=== PATIENT | female | born 1995 | race Hispanic/Latino ===

== ENCOUNTER 2020-10-08 04:25 | Inpatient (IN) | payer OTHER, SELFPAY ==
[2020-10-08] VITALS (77 sets, daily range): BP systolic 89–132; BP diastolic 63–108; PULSE 71–103; RESP 14–18; TEMP 36.3–36.9; O2SAT 93–100; BMI 33.5
--- NOTE | 2020-10-08 04:51 | WPDANESEPP ---
Anes - Eval Pre Procedure Date/Time: 10/08/20 04:51 Pre Op Diagnosis: leaking Patient Data Age: 25 Gender: F Height: Weight: Last Vital Signs Pulse 93 10/08/20 04:46 BP 132/108 H 10/08/20 04:46 Allergies Allergy/AdvReac Type Severity Reaction Status Date / Time No Known Allergies Allergy Unknown Verified 03/19/19 13:17 Home Medications Medication Instructions Recorded Confirmed Type Otc Wt. Loss Supplement 04/28/19 History etonogestrel [Nexplanon] SUBDERMAL 04/28/19 History Exam Day of Procedure 10/08/20 04:51
--- NOTE | 2020-10-08 04:53 | WPDANESEPP ---
Anes - Eval Pre Procedure Procedure: Repeat c section with BTL Date/Time: 10/08/20 04:53 Surgeon: Ezequiel Preop Diagnosis: Previous c section desires sterility Pre Op Diagnosis: leaking Patient Data Age: 25 Gender: F Height: Weight: Last Vital Signs Pulse 93 10/08/20 04:46 BP 132/108 H 10/08/20 04:46 Allergies Allergy/AdvReac Type Severity Reaction Status Date / Time No Known Allergies Allergy Unknown Verified 03/19/19 13:17 Home Medications Medication Instructions Recorded Confirmed Type Otc Wt. Loss Supplement 04/28/19 History etonogestrel [Nexplanon] SUBDERMAL 04/28/19 History Patient hx anesthesia problems: none Family hx anesthesia problems: none PMFSH Past Medical History Medical History Overweight (BMI 25.0-29.9) and not yet delivered Surgical History Surgical History Previous section Exam Day of Procedure 10/08/20 04:53 Patient weight: overweight Airway: Mallampati scale class II Neurological: alert and oriented
[2020-10-08 05:36] LABS: Basophils Percent Auto 0.4 % (0.2-1.2); Eosinophils Absolute Auto 0.1 K/mm3 (0-0.3); Eosinophils Percent Auto 1.3 % (0-4.4); Hematocrit 34.3 % (37.0-47.0); Hemoglobin 11.2 g/dL (12.0-15.0); Immature Granulocyte Absolute 0.11 K/mm3 (0.00-0.031); Immature Granulocyte Percent A 1.5 % (0-0.5); Lymphocytes Absolute Auto 1.65 K/mm3 (0.9-3.2); Lymphocytes Percent Auto 22.1 % (18.3-44.2); Mean Corpuscular HGB Conc 32.7 g/dl (32-36); Mean Corpuscular Hemoglobin 30.8 pg (26-34); Mean Corpuscular Volume 94.2 fl (80-100); Mean Platelet Volume 10.7 fl (7.4-10.4); Monocytes Absolute Auto 0.6 K/mm3 (0.1-0.6); Monocytes Percent Auto 7.5 % (2.6-8.5); Neutrophils Percent Auto 67.2 % (45.5-73.1); Platelet Count Result 185 k/mm3 (150-375); Red Blood Count 3.64 M/mm3 (4.2-5.4); White Blood Count 7.5 K/mm3 (4.5-10.0)
[2020-10-08] MEDS: LACTATED RINGERS 1,000 ML 125 ML IV CONT (05:50)
--- NOTE | 2020-10-08 06:41 | WPDANESEFPP ---
Anes - Eval Final PreProcedure Day of Procedure 10/08/20 06:41 Patient weight: obese Heart: regular rate and rhythm Lungs: clear to auscultation Airway: Mallampati scale class II Neurological: alert and oriented Last oral intake: >/= 8 hours ASA classification: II Emergent: no Anesthetic plan: proceed Anesthesia type and monitoring: regional spinal and standard monitoring Informed Consent: The patient's anesthetic plan and its attendant risks and benefits were discussed with the patient/family/POA. Questions were solicited and answers provided to the satisfaction of the patient/family/POA.
[2020-10-08] MEDS: LACTATED RINGERS 1,000 ML 999 ML IV CONT (06:54)
--- NOTE | 2020-10-08 07:02 | PM.IMHP ---
H&P: HPI History of Present Illness Date/Time: 10/08/20 07:02 25 yo who presents with SROM in the setting of prior . Pt denies any regular contractions. Her has been complicated by history fo Preeclampsia in a previous requiring at 30w. Her BP have been wnl this . Pt desires permanent sterilization via tubal ligation at the time of . Chief Complaint: Spontaneous rupture of membranes Review of Systems Cardiovascular: Cardiovascular: Denies chest pain, Denies leg edema, Denies palpitations, Denies dyspnea and Denies dyspnea on exertion Respiratory: Respiratory: Denies cough, Denies dyspnea and Denies dyspnea on exertion Gastrointestinal: Gastrointestinal: Denies abdominal pain, Denies constipation, Denies diarrhea, Denies nausea and Denies vomiting Genitourinary: Genitourinary: Denies hematuria, Denies urinary frequency, Denies dysuria, Denies pelvic pain, Denies urinary incontinence and Denies vaginal discharge Neurologic: Reports system reviewed and no additional complaints, except as documented Psychiatric: Psychiatric: Reports no additional psychiatric complaints Endocrine: Endocrine: Denies palpitations PMFSH Past Medical History Medical History (Updated 10/08/20 @ 07:04 by Paras Ren MD) Overweight (BMI 25.0-29.9) and not yet delivered Surgical History Surgical History Previous section Social History Social History Smoking status: Never smoker Spiritual care concerns: No Meds Home Medications and Allergies Home Medications Medication Instructions Recorded Confirmed Type PNV cmb#95-ferrous fumarate-FA 1 tablet PO DAILY 10/08/20 10/08/20 History [] aspirin 81 mg PO DAILY 10/08/20 10/08/20 History ergocalciferol (vitamin D2) 1,250 mcg PO WEEKLY 10/08/20 10/08/20 History [Vitamin D2] Allergies Allergy/AdvReac Type Severity Reaction Status Date / Time No Known Allergies Allergy Unknown Verified 03/19/19 13:17 Vital Signs Vital Signs - 24 hr 10/08/20 04:37 10/08/20 04:41 10/08/20 04:46 Temperature 36.4 C L Pulse Rate 91 93 Blood Pressure 119/84 132/108 H 10/08/20 05:52 10/08/20 06:01 10/08/20 06:16 Temperature Pulse Rate 86 88 86 Blood Pressure 131/84 124/88 117/69 10/08/20 06:31 10/08/20 06:46 10/08/20 06:52 Temperature Pulse Rate 85 91 86 Blood Pressure 108/63 131/93 H 122/84 Exam Const: General: no acute distress Eyes: EOM: EOMs intact bilaterally Neck: Neck: supple Thyroid: thyroid normal Chest: Breast/axilla inspection: normal inspection of the breasts Breast/axilla palpation: normal palpation of the breasts, normal palpation of the axillae and no axillary lymphadenopathy Resp: Effort & Inspection: normal respiratory effort Auscultation: clear to auscultation bilaterally Cardio: Rate: regular rate Rhythm: regular rhythm GI: Inspection: non-distended GI Palp: Yes Soft to palpation, No Tenderness to palpation present (GI) and No Guarding due to palpation present (GI) Auscultation: normal bowel sounds : General: No bladder normal to palpation External Female Exam: normal external appearance Speculum Exam - Vagina: normal vaginal discharge and No vaginal bleeding Speculum Exam - Cervix: nontender Bimanual exam- vagina & uterus: No bladder normal to palpation and No Cervical tenderness present OB/external & speculum: No vaginal bleeding Skin: General skin exam: normal color and no rashes or lesions noted Neuro: Cognition (Neuro): normal cognition Speech: normal speech Extrem: General: normal to inspection and no edema Psych: Mental Status: mental status grossly normal Affect: normal affect H&P: Results Labs Labs: Short CBC 10/08/20 Range/Units 05:28 WBC 7.5 (4.5-10.0) K/mm3 Hgb 11.2 L (12.0-15.0) g/dL
[2020-10-08] MEDS: ceFAZolin 2 GM/D5W 50 ML 2 GM/50 ML BAG IVPB (07:04)
--- NOTE | 2020-10-08 08:17 | PM.PROC ---
Procedure Note - Detailed Date of procedure: 10/08/20 Pre-op diagnosis: leaking SROM previous C/S x1 desires permanent sterilization Post-op diagnosis: same Procedure performed: repeat low transverse section bilateral tubal ligation Description of procedure: The patient was taken to the operating room where epidural anesthesia was found to be adequate. She was then prepped and draped in the usual sterile fashion in the dorsal supine position with a leftward tilt. A Pfannenstiel skin incision was then made with the scalpel and carried through to the underlying layer of fascia. The fascia was then incised in the midline and the incision extended laterally with the Butler scissors. The superior aspect of the fascia was then grasped with the Roni clamps, elevated, and the underlying rectus muscles dissected off bluntly and sharply. Attention was then turned to the inferior aspect of this incision which, in a similar fashion, was grasped, tented up with the Roni clamps, and the rectus muscles dissected off both bluntly and sharply. The rectus muscles were then in the midline, and the peritoneum identified, tented up, and entered sharply with the Metzenbaum scissors. The peritoneal incision was then extended superiorly and inferiorly with good visualization of the bladder. The bladder blade was then inserted and the vesicouterine peritoneum identified, grasped with the pick-ups and entered sharply with the Metzenbaum scissors. This incision was then extended laterally and the bladder flap created digitally. The bladder blade was then reinserted and the lower uterine segment incised in a low, transverse fashion with the scalpel. The uterine incision was then extended laterally bluntly. The bladder blade was removed and the infant?s head delivered atraumatically. The nose and mouth were suctioned with the bulb suction, and the remainder of the was delivered atraumatically. The cord was clamped and cut. The infant was handed off to the waiting pediatricians (staff). Cord gasses were sent. The placenta was then removed manually, the uterus exteriorized, and cleared of all clots and debris. The uterine incision was repaired with 0 vicryl in a running fashion. Both fallopian tubes were identified and followed out to the fimbrae bilaterally. The left fallopian tube was grasped with Babcocks and elevated to identify an avascular space in the mesosalpinx. A window was then made in the mesosalpinx of the fallopian tube using Bovie cautery. Chromic suture was then passed through the window at the mid-isthmic portion of the fallopian tube. The tube was then suture ligated x 2 and an approximately 2-3 cm portion was removed. The same procedure was repeated for the right fallopian tube. The uterus was returned to the abdomen. The uterus was then reinspected to ensure hemostasis as were all subfascial tissues. The peritoneum was re-approximated with vicryl in a running fashion. The fascia was reapproximated with 0 vicryl in a running fashion. The subcutaneous layer was copiously irrigated to clear any clots or debris. The subcutaneous tissue was reapproximated using 3-0 Vicryl in a running fashion. The skin was closed with 4-0 vicryl. The patient tolerated the procedure well. Sponge, lap and needle counts were correct times three. The patient was taken to the recovery room in stable condition. Anesthesia: epidural Surgeon: Paras Ren MD Estimated blood loss (mL): 535 IV fluids (mL): 1,000 Urine output (mL): 300 Drains: No Packing: No Pathology: none sent Complications: No immediate complications Condition: stable Disposition: floor ( ) Findings: dense adhesions of the peritoneum to the anterior uterus, normal appearing fallopian tubes and ovaries bilaterally
--- NOTE | 2020-10-08 08:20 | SUR.PHASEI ---
IV fluids are LR with 40 units of Pitocin- 300 ml remains in bag.
[2020-10-08 08:57] LABS: Rapid Plasma Reagin Non-Reactive (NonReactive)
[2020-10-08] MEDS: OXYTOCIN 30 UNITS/NS 500 ML 30 UNITS/500 ML BAG 125 UNITS IV CONT (10:01)
[2020-10-08] MEDS: KETOROLAC 30 MG/ML VIAL (*BKC) IV PUSH ×2 (10:42→20:39)
--- NOTE | 2020-10-08 11:23 | PC.NURSE ---
1050-Patient transferred to post room #285 via stretcher. Support person present. Oriented to unit, room, information board, rooming in, admission packet and security measures. Patient verbalizes understanding.
--- NOTE | 2020-10-08 12:15 | PC.NURSE ---
1215 Mother called out for assist with feeding. Reviewed feeding cues, frequencies, duration of feedings, feeding elimination flow sheet, and signs of adequate intake. Demonstrated stimulation techniques to wake for feeding. Assisted with infant to breast. Reviewed positioning/alignment in football, holding breast in ?C? hold and guided asymmetrical latch on. After several attempts infant able to latch correctly. Infant nursed eagerly, with steady draws and frequent swallowing noted. Reviewed signs of a correct latch, effective nursing and suck swallow ratio. Infant was able to maintain latch without discomfort to mother. Nipple care reviewed of lanolin after feedings, warm compresses as needed. Suggested mother stimulate while feeding to increase stimulate, increase intake and to assist with maintaining deep latch. Instructed mother to call out for RN assistance if she is unable to latch for feeding or she has discomfort with nursing. Instructed feeding should be initiated three hours from start of last feeding or if feeding cues are noted before. Mother voiced understanding of information shared
[2020-10-08] MEDS: LORATADINE 10 MG TABLET PO (12:34)
[2020-10-08] MEDS: DEXTROSE 5%/0.45% SOD CHL 1,000 ML 125 ML IV CONT (14:26)
[2020-10-08] MEDS: HYDROcodone/acetaminophen (*CRX) 5-325 MG TABLET 1 TAB PO (20:39)
[2020-10-09 00:40] VITALS: BP 105/71; PULSE 101; RESP 13; TEMP 36.7; O2SAT 96
[2020-10-09 04:40] VITALS: BP 111/78; PULSE 104; RESP 15; TEMP 36.7; O2SAT 96
[2020-10-09] MEDS: HYDROcodone/acetaminophen (*CRX) 5-325 MG TABLET 1 TAB PO ×4 (04:46→22:54)
[2020-10-09] MEDS: KETOROLAC 30 MG/ML VIAL (*BKC) IV PUSH (04:46)
[2020-10-09 05:51] LABS: Basophils Percent Auto 0.3 % (0.2-1.2); Eosinophils Absolute Auto 0.1 K/mm3 (0-0.3); Eosinophils Percent Auto 1.3 % (0-4.4); Hematocrit 26.8 % (37.0-47.0); Hemoglobin 8.8 g/dL (12.0-15.0); Immature Granulocyte Absolute 0.04 K/mm3 (0.00-0.031); Immature Granulocyte Percent A 0.6 % (0-0.5); Lymphocytes Percent Auto 19.4 % (18.3-44.2); Mean Corpuscular HGB Conc 32.8 g/dl (32-36); Mean Corpuscular Hemoglobin 31.3 pg (26-34); Mean Corpuscular Volume 95.4 fl (80-100); Mean Platelet Volume 10.4 fl (7.4-10.4); Monocytes Absolute Auto 0.4 K/mm3 (0.1-0.6); Monocytes Percent Auto 5.8 % (2.6-8.5); Neutrophils Absolute Auto 4.9 K/mm3 (1.3-6.7); Neutrophils Percent Auto 72.6 % (45.5-73.1); Platelet Count Result 156 k/mm3 (150-375); Red Blood Count 2.81 M/mm3 (4.2-5.4); Red Cell Distribution Width 13.3 % (11.5-14.5); White Blood Count 6.7 K/mm3 (4.5-10.0)
[2020-10-09 07:50] VITALS: BP 121/76; PULSE 106; RESP 18; TEMP 36.6; O2SAT 95
[2020-10-09 09:00] VITALS: PULSE 106; RESP 18; O2SAT 95
--- NOTE | 2020-10-09 10:50 | PC.NURSE ---
Consult with pt., mother reports she is breast and bottle feeding. Mother states she will attempt infant to breast, if infant does not latch mother will bottle feed. Mother reports difficulties/discomfort with latch. Requested mother call out next feeding for assist.
[2020-10-09] MEDS: IBUPROFEN 600 MG TABLET PO ×3 (11:30→22:54)
[2020-10-09] MEDS: DOCUSATE SODIUM 100 MG CAPSULE PO ×2 (11:31→16:58)
[2020-10-09] MEDS: MULTIVIT/MIN/PREN/FOL AC/IRON TABLET 1 TAB PO (11:31)
[2020-10-09] MEDS: POLYSACCHARIDE IRON COMPLEX 150 MG CAPSULE PO ×2 (11:32→16:58)
--- NOTE | 2020-10-09 13:05 | PC.NURSE ---
Mother called out for assist with feeding. reporting is sleepy. Reviewed feeding cues, frequencies, duration of feedings, feeding elimination flow sheet, and signs of adequate intake. Demonstrated stimulation techniques to wake for feeding. Assisted with to breast. Reviewed positioning/alignment in cross cradle, holding breast in ?U? hold and guided asymmetrical latch on. Suggested mother sit more upright and use pillows for support. able to latch correctly after several attempts. Infant nursed eagerly, with steady draws and frequent swallowing noted. Reviewed signs of a correct latch, effective nursing and suck swallow ratio. Infant would slip to shallow latch, mother reports tenderness. Demonstrated how to adjust latch more deeply while feeding. Mother reports she can feel change in latch and has no tenderness. Nipple care reviewed of lanolin after feedings, warm compresses as needed. Suggested mother stimulate while feeding to increase stimulate, increase intake and to assist with maintaining deep latch. Instructed mother to call out for RN assistance if she is unable to latch infant for feeding or she has discomfort with nursing. Instructed feeding should be initiated three hours from start of last feeding or if feeding cues are noted before. Mother voiced understanding of information shared.
--- NOTE | 2020-10-09 15:20 | WPDANLDPN2 ---
Anes-Prog Note L&D Date/Time: 10/09/20 15:20 Comfortable throughout: section Neuraxial method: spinal Epidural/Spinal procedure site: clean & non-tender Neuro status: Neuro function grossly intact. Cardiovascular status: normal Respiratory status: normal Airway patency: baseline Mental status: baseline Post-Op hydration status: normal Vital Signs: Last Vital Signs Temp 36.6 C 10/09/20 07:50 Pulse 106 H 10/09/20 07:50 Resp 18 10/09/20 07:50 BP 121/76 10/09/20 07:50 Pulse Ox 95 10/09/20 07:50 Pain score (VAS): 0/10. Patient resting in bed at time of assessment, appears comfortable. Support person at bedside. I/O: Intake & Output 10/08/20 10/09/20 10/09/20 23:59 07:59 15:59 Intake Total 1330 400 Output Total 650 800 500 Balance 680 -800 -100 Post-procedural complaints: none Patient feedback: Patient satisfied with anesthetic care.
--- NOTE | 2020-10-09 15:22 | WPDANLDNPN2 ---
Anes-Prog Note L&D-Neuraxial Date/Time: 10/09/20 15:22 Neuraxial medications: intrathecal PF morphine Opiod-related complaints: none Patient feedback: Patient satisfied with post-operative pain management.
[2020-10-09 23:50] VITALS: BP 113/78; PULSE 102; RESP 15; TEMP 36.8; O2SAT 97
[2020-10-10 07:50] VITALS: BP 117/79; PULSE 97; RESP 18; TEMP 36.9; O2SAT 97
[2020-10-10] MEDS: POLYSACCHARIDE IRON COMPLEX 150 MG CAPSULE PO (08:08)
[2020-10-10] MEDS: MULTIVIT/MIN/PREN/FOL AC/IRON TABLET 1 TAB PO (08:08)
[2020-10-10] MEDS: DOCUSATE SODIUM 100 MG CAPSULE PO (08:08)
[2020-10-10] MEDS: HYDROcodone/acetaminophen (*CRX) 5-325 MG TABLET 1 TAB PO ×2 (08:09→13:41)
[2020-10-10] MEDS: IBUPROFEN 600 MG TABLET PO ×2 (08:09→13:42)
--- NOTE | 2020-10-10 10:20 | PC.NURSE ---
Mother is able to independently latch infant with appropriate positioning/alignment. She denies any nipple discomfort, is feeding as required and waking to feed if needed. has had a few breastfeedings and is mostly bottle fed by choice, and is currently meeting outcomes for weight, output, jaundice and feeding frequencies. Mother states she feels confident to continue current breast and bottle feeding at home. Reviewed transition to breast milk, signs of adequate intake, and engorgement/relief. Instructed to call ICP if intake/output less than required. Reviewed regular medications mother is taking. Information provided per Mary Lou. Reviewed community resources on the [facility] website and in the Mom/Baby guide. Information on outpatient services provided. Mother has no further questions at this time.
--- NOTE | 2020-10-10 11:23 | PM.DS ---
DS: Admitting Diagnosis Admitting Diagnosis Admitting Diagnosis: term iup/desires sterilization DS: Summary Hospital Course Hospital Course: the patient was admitted for repeat section and tubal ligation. She underwent that procedure on 10/08 20. Her hospital course was unremarkable. She remained afebrile. She was up, voiding without difficulty, eating weighted Ar, ambulating in general without complaints Time Spent with Patient Time attestation: Total time spent providing and/or coordinating discharge services: Exam Const: General: no acute distress Eyes: General: appearance normal, both eyes and all related structures Neck: Neck: supple and no JVD Thyroid: thyroid normal Resp: Effort & Inspection: normal respiratory effort Auscultation: clear to auscultation bilaterally Cardio: Rate: regular rate Rhythm: regular rhythm GI: Inspection: non-distended GI Palp: Yes Soft to palpation, No Tenderness to palpation present (GI) and No Guarding due to palpation present (GI) Auscultation: normal bowel sounds : General: Yes bladder normal to palpation External Female Exam: normal external appearance Speculum Exam - Vagina: normal vaginal discharge and No vaginal bleeding Speculum Exam - Cervix: nontender Bimanual exam- vagina & uterus: bladder normal to palpation and No Cervical tenderness present OB/external & speculum: No vaginal bleeding Skin: General skin exam: no rashes or lesions noted Extrem: General: normal to inspection and no edema Psych: Mental Status: mental status grossly normal Affect: normal affect DS: Data Data Completed and Pending Pending studies at discharge: Pending at discharge 10/08/20 07:42 Surgical [PTH] Routine Discharge Plan Discharge Attending physician on discharge: Paras Ren Discharging Clinician: Paras Ren Patient Disposition: Home, Self-Care Activity: may shower, no straining, may drive after 2 weeks and pelvic rest Diet: heart healthy Wound Care Instructions: follow printed instructions Patient Instructions: Antibiotic Form Stand Alone Forms: General Discharge Information Follow-up/Referrals: Paras Ren MD [Physician] - Discharge Medications: New hydrocodone-acetaminophen 5-325 mg tablet 1 tablet PO Q4H PRN (Reason: pain) Qty: 30 RF: 0 No Action aspirin 81 mg Tablet 81 mg PO DAILY RF: 0 ergocalciferol (vitamin D2) [Vitamin D2] 1,250 mcg (50,000 unit) Capsule 1,250 mcg PO WEEKLY RF: 0 PNV cmb#95-ferrous fumarate-FA [] 28 mg iron- 800 mcg Tablet 1 tablet PO DAILY RF: 0 Date of admission: 10/08/20 04:25 Primary Care Provider: Mehran,Maria M Admitting Provider: Paras Ren Attending physician on admission: Paras Ren Condition: Stable
--- NOTE | 2020-10-10 11:26 | PM.OBPNVD ---
OB - PN: Subj Subjective Date/time seen: 10/10/20 11:26 Patient comments: no complaints and pain well controlled baby status: doing well OB - PN: Obj Data Labs CBC & Chem 7: 10/09/20 04:55 OB - PN A/P Plan day: 2 Plan: routine care, discharge home and follow up 6 weeks (4 weeks) Time Spent With Patient Time: Total time spent is greater than 50% in coordination of care (as documented) at patient's floor/unit and/or counseling patient: Time with patient: less than 15 minutes Review of Systems Review of Systems: All systems reviewed & are unremarkable except as noted in HPI and below Exam Const: General: no acute distress Eyes: General: appearance normal, both eyes and all related structures Neck: Neck: supple and no JVD Thyroid: thyroid normal Resp: Effort & Inspection: normal respiratory effort Auscultation: clear to auscultation bilaterally Cardio: Rate: regular rate Rhythm: regular rhythm GI: Inspection: non-distended GI Palp: Yes Soft to palpation, No Tenderness to palpation present (GI) and No Guarding due to palpation present (GI) Auscultation: normal bowel sounds : General: Yes bladder normal to palpation External Female Exam: normal external appearance Speculum Exam - Vagina: normal vaginal discharge and No vaginal bleeding Speculum Exam - Cervix: nontender Bimanual exam- vagina & uterus: bladder normal to palpation and No Cervical tenderness present OB/external & speculum: No vaginal bleeding Skin: General skin exam: no rashes or lesions noted Extrem: General: normal to inspection and no edema Psych: Mental Status: mental status grossly normal Affect: normal affect
--- NOTE | 2020-10-10 13:00 | PC.NURSE ---
Patient instructed to view the discharge video Mother & Baby Care, The First Two Weeks . Patient was given the opportunity and encouraged to ask questions. Patient verbalized understanding of information shared and has been given the mother/baby guide for home reference.
[2020-10-13 09:01] VITALS: BP 123/86; PULSE 98; RESP 20; TEMP 36.9; O2SAT 100
== END 2020-10-10 14:05 | disposition home or self-care (01) | DRG 785 ==
LOC: ANHLDR 04:47 → ANHOB2 10-09 07:17 → ANHLDR 10-14 12:27 → ANHOB2 10-14 12:27
PROVIDERS: Student in an Organized Health Care Education/Training Program; Admitting Provider Obstetrics & Gynecology; PCP Physician Assistant; Visit Provider Obstetrics & Gynecology
PROC: 10D00Z1 Extraction of Products of Conception, Low, Open Approach (ICD-10-PCS; CPT 59514; principal; 2020-10-08 07:00)
DX: O34.211 Maternal care for low transverse scar from previous cesarean delivery (principal); Z37.0 Single live birth; Z3A.37 37 weeks gestation of pregnancy; O69.81X0 Labor and delivery complicated by cord around neck, without compression, not applicable or unspecified; Z30.2 Encounter for sterilization; O99.214 Obesity complicating childbirth; E66.9 Obesity, unspecified
CPT/HCPCS: 36415; 85025; 86592; 86850; 86900; 86901; 88302; A9270; J0131; J0690; J1885; J2274; J2370; J2405; J2590; J7120

== ENCOUNTER → 2021-02-09 16:14 | Outpatient (CLI) | payer OTHER, SELFPAY ==
--- NOTE | ~2021-02-09 | XR_ITS ---
XR hip BI 2V w AP pelvis DATE: 02/09/2021 17:12 INDICATION: Back and bilateral leg pain. Bilateral hip pain. TECHNIQUE: AP pelvis. AP, lateral and crosstable lateral views of each hip COMPARISON: None FINDINGS: The pubic symphysis and sacroiliac joints are intact. No pelvic fracture or bone destructio n. Hip joint spaces are symmetric and well preserved. No fracture or dislocation, avascular necrosis or bone destruction of either hip is detected. IMPRESSION: Negative Reviewed, dictated and finalized at location B. IMPRESSION: Negative
== END ==
PROVIDERS: PCP Physician Assistant; Visit Provider Physician Assistant
DX: M54.5 Low back pain (principal); G89.29 Other chronic pain
CPT/HCPCS: 73521

== ENCOUNTER 2022-09-22 14:08 | Emergency (ER) | payer OTHER, SELFPAY ==
--- NOTE | 2022-09-22 14:11 | ED.URI ---
HPI - URI/Sore Throat General Chief Complaint: Upper Respiratory Infection Stated Complaint: Sore throat, pain in glands behind ear Time Seen by Provider: 09/22/22 14:11 Source: patient Mode of arrival: ambulatory Limitations: no limitations History of Present Illness HPI Narrative: Sangeeta is a 27-year-old female patient presenting to the clinic today with complaints sore throat, fever, and swollen lymph nodes. She reports symptoms started last -6 days ago. No known sick contacts. MD elicited complaint: sore throat and nasal congestion Related Data Allergies Allergy/AdvReac Type Severity Reaction Status Date / Time No Known Allergies Allergy Unknown Verified 09/22/22 14:28 Review of Systems Review of Systems: Pertinent positives per HPI. Patient denies any rash, headache, visual changes, dizziness, shortness of breath, chest pain, palpitations, nausea, vomiting, diarrhea, constipation, abdominal pain, or any urinary issues. PMFSH Past Medical History Medical History Overweight (BMI 25.0-29.9) and not yet delivered Surgical History Surgical History Previous section Family History Family History Other No pertinent family history Social History Social History Smoking status: Never smoker Spiritual care concerns: No Comments At the time of my signature, I reviewed and agree with the nursing past medical, surgical, social, and family history. There is no relevant family history pertinent to the patient complaint. Exam Narrative: General: Well-developed, well nourished, in no apparent distress Head: Normocephalic, atraumatic Eyes: Pupils equally round and reactive to light bilaterally, EOM intact, sclera and conjunctive clear, no discharge, lids normal Ears: TMs intact and clear, ear canals ceruminous, no drainage, grossly hearing normal. Nose: Nares patent, clear nasal discharge, no inflammation, no sinus tenderness. Mouth: Oral pharynx red with 2+ bilateral tonsillar enlargement without lesions or masses, good dentition, MMM. Neck: Supple, trachea midline, enlargement of anterior cervical nodes, no thyroid masses or goiter palpable. Cardio: Regular rate and rhythm, s1 and s2 normal, no murmur appreciated. Resp: Clear to auscultation bilaterally, no rhonchi, rales, wheezing or rubs Course Course Emergency Course: Portions of this record may have been created with voice recognition software. Level of Care: Express Care Visit Vital Signs Vital signs: Vital signs reviewed MDM - URI/Sore Throat MDM Narrative Medical decision making narrative: At the time of visit patient is resting comfortably on the exam table. Strep screen was positive in the clinic today. Prescription for amoxicillin was sent to the pharmacy and supportive measures were discussed with the patient she voiced understanding discharge instructions agrees to treatment plan. Differential Diagnosis Differential diagnosis: Likely upper respiratory infection, otitis media, sinusitis, viral infection, bronchitis, influenza, pharyngitis and other (COVID) Discharge Plan Discharge Clinical Impression: Acute streptococcal pharyngitis Patient Disposition: Home, Self-Care Condition: Stable Instructions: Antibiotic Form, Strep Throat (ED) Additional Instructions: Strep screen was positive in the clinic today. Change your toothbrush in 24 hours after initiation of the antibiotic Take prescription medications only as prescribed-amoxicillin Increase fluids and stay well hydrated Tylenol/motrin for pain/fever Flonase and OTC antihistamines as directed Vicks vapor rub to open sinuses Sinus rinses for congestion Cepacol spray, cough drops, t
[2022-09-22 14:17] VITALS: BP 114/75; PULSE 79; RESP 16; TEMP 36.9; O2SAT 100
== END 2022-09-22 14:34 | disposition home or self-care (01) ==
LOC: EXPCOLL 14:15
PROVIDERS: Emergency Provider Nurse Practitioner Family; PCP Physician Assistant
DX: J02.0 Streptococcal pharyngitis (principal)
CPT/HCPCS: 87880; 99213; G0463

== ENCOUNTER 2023-05-15 12:09 | Emergency (ER) | payer OTHER, SELFPAY ==
--- NOTE | 2023-05-15 12:34 | ED.URI ---
HPI - URI/Sore Throat General Chief Complaint: Upper Respiratory Infection Stated Complaint: fever,sore throat Time Seen by Provider: 05/15/23 12:34 Source: patient Mode of arrival: ambulatory Limitations: no limitations History of Present Illness HPI Narrative: Sangeeta is a 28-year-old female patient presenting to the clinic today with complaints of sore throat and fever times 2-3 days. She reports highest fever was 102. MD elicited complaint: fever and sore throat Related Data Allergies Allergy/AdvReac Type Severity Reaction Status Date / Time No Known Allergies Allergy Unknown Verified 05/15/23 12:43 Review of Systems Review of Systems: Pertinent positives per HPI. Patient denies any rash, headache, visual changes, dizziness, cough, runny nose, sore throat, shortness of breath, chest pain, palpitations, nausea, vomiting, diarrhea, constipation, abdominal pain, or any urinary issues. [facility] Past Medical History Medical History Overweight (BMI 25.0-29.9) and not yet delivered Surgical History Surgical History Previous section Family History Family History Other No pertinent family history Social History Social History Smoking status: Never smoker Spiritual care concerns: No Comments At the time of my signature, I reviewed and agree with the nursing past medical, surgical, social, and family history. There is no relevant family history pertinent to the patient complaint. Exam Narrative: General: Well-developed, well nourished, in no apparent distress Head: Normocephalic, atraumatic Eyes: Pupils equally round and reactive to light bilaterally, EOM intact, sclera and conjunctive clear, no discharge, lids normal Ears: TMs intact and clear, ear canals clear, no drainage, grossly hearing normal. Nose: Nares patent, no discharge, no inflammation, no sinus tenderness. Mouth: Oropharynx red with bilateral tonsillar enlargement with white exudate without masses, good dentition, MMM. Neck: Supple, trachea midline, enlargement of anterior cervical nodes, no thyroid masses or goiter palpable. Cardio: Regular rate and rhythm, s1 and s2 normal, no murmur appreciated. Resp: Clear to auscultation bilaterally anteriorly and posteriorly, no rhonchi, rales, wheezing or rubs Course Course Emergency Course: Portions of this record may have been created with voice recognition software. Level of Care: Express Care Visit Vital Signs Vital signs: Vital Signs Temperature 37.1 C 05/15/23 12:40 Pulse Rate 111 H 05/15/23 12:40 Respiratory Rate 16 05/15/23 12:40 Blood Pressure 110/75 05/15/23 12:40 Pulse Oximetry 100 05/15/23 12:40 Oxygen Delivery Room Air 05/15/23 12:40 Temperature 37.1 C 05/15/23 12:40 Pulse Rate 111 H 05/15/23 12:40 Respiratory Rate 16 05/15/23 12:40 Blood Pressure 110/75 05/15/23 12:40 Pulse Oximetry 100 05/15/23 12:40 Oxygen Delivery Room Air 05/15/23 12:40 Vital signs reviewed MDM - URI/Sore Throat MDM Narrative Medical decision making narrative: At the time of visit patient is resting comfortably on the exam table. Patient appears to be nontoxic. Strep test was positive in the clinic today. Prescription for amoxicillin was sent to the pharmacy. Supportive measures were discussed with the patient and they voiced understanding discharge instructions and agrees to treatment plan. Return precautions reviewed Differential Diagnosis Differential diagnosis: Likely upper respiratory infection, otitis media, sinusitis, viral infection, bronchitis, influenza, pharyngitis and other (COVID) Lab Data Labs: Influenza A Screen Negative *
[2023-05-15 12:40] VITALS: BP 110/75; PULSE 111; RESP 16; TEMP 37.1; O2SAT 100
== END 2023-05-15 13:00 | disposition home or self-care (01) ==
PROVIDERS: Emergency Provider Nurse Practitioner Family; PCP Physician Assistant
DX: J02.0 Streptococcal pharyngitis (principal)
CPT/HCPCS: 87804; 87880; 99213; G0463

== ENCOUNTER → 2024-12-12 16:13 | Outpatient (CLI) | payer OTHER, SELFPAY ==
--- NOTE | ~2024-12-12 | XR_ITS ---
XR hip RT min 2V 12/12/2024 16:35 INDICATION: Hip pain PROCEDURE: 2 views right hip COMPARISON: No prior studies for comparison. FINDINGS: Fracture, dislocation or subluxation is not identified. The soft tissues appear within norm al limits. No foreign bodies are identified. IMPRESSION: 1: NO ACUTE BONE OR JOINT ABNORMALITY IDENTIFIED. Reviewed, dictated and finalized at location B.
--- NOTE | ~2024-12-12 | XR_ITS ---
Lumbosacral Spine: AP, oblique, and lateral views Clinical History: Pain Findings: The normal lordotic curve is maintained. The vertebral bodies and posterior elements are i ntact. The intervertebral disc spaces are preserved. The sacroiliac joints are normally outlined. Impression: No significant abnormality. Reviewed, dictated and finalized at [facility]. Impression: No significant abnormality.
== END ==
LOC: EXPCRAD 16:18
PROVIDERS: PCP Physician Assistant; Visit Provider Physician Assistant
DX: M25.551 Pain in right hip (principal); M54.50 Low back pain, unspecified
CPT/HCPCS: 72110; 73502